=== PATIENT | female | born 1935 | race Caucasian/White ===

== ENCOUNTER 2019-07-09 00:51 | Inpatient (IN) | payer MEDICARE ==
[~2019-07-09] VITALS: Ht 154.9 cm; Wt 49.9 kg
[2019-07-09] MEDS ORDERED: AMITRIPTYLINE100 M1 PO (01:44)
[2019-07-09] MEDS ORDERED: RANEXA500 M1 PO (01:47)
[2019-07-09] MEDS ORDERED: VITAMIN E400 UNI3 PO (01:47)
[2019-07-09] MEDS ORDERED: LASIX40 MG PO (01:48)
[2019-07-09] MEDS ORDERED: VITAMIN C100 M3 PO (01:49)
[2019-07-09] MEDS ORDERED: LOPRESSOR25 MG PO (01:50)
[2019-07-09] MEDS ORDERED: ASPIRIN LITE C325 MG PO (01:50)
[2019-07-09] MEDS ORDERED: CENTRUM SILVER1 EAC1 PO (01:51)
[2019-07-09] MEDS ORDERED: OMEGA-31000 M1 PO (01:52)
[2019-07-09] MEDS ORDERED: CRESTOR40 M1 PO (01:52)
[2019-07-09 05:46] VITALS: BP 150/76
--- NOTE | 2019-07-09 05:54 | NUR ---
DR CHISHOLM ON FLOOR TO SEE CLIENT
--- NOTE | 2019-07-09 06:47 | NUR ---
REBA RESENDEZ NOTIFIED OF ADMISION AND STATUS
[2019-07-09 07:03] VITALS: BP 150/76
--- NOTE | 2019-07-09 07:18 | NUR ---
JANICE THOMPSNO a 83 year old F admitted via wheel chair FROM [facility] as a emergency 72 hr. hold admission. Arrived on unit at 0535. ALLERGIES: . Vital signs are: 98.1-96-20 150/76. The client signed the following forms with stated understanding: Authorization For The Release of Medical Information, Clothing List, Consent to Voluntary Admission and Hospitalization, Consent and Release Forms/Receipt of Rights, Acknowledgement of Advance Directive Information, Behavioral Health Consent Form, and Informed Consent of Medications. Admitted under the services of Dr. VINCENZO SILVA,[facility]. A search was conducted and hazardous articles were removed. Client was oriented to the unit. LEA HOWARD
[2019-07-09 07:35] LABS: BASO # 0.1 10*3/uL (0.0-0.1); BASO % 1.1 % (0.0-1.0); EOS # 0.3 10*3/uL (0.0-0.4); EOS % 2.9 % (1.0-4.0); HEMATOCRIT 40.2 % (37.0-47.0); LYMPH # 2.6 10*3/uL (1.3-4.4); LYMPH % 28.3 % (27.0-41.0); MEAN CELL VOLUME 96.6 fl (81.0-99.0); MEAN CORPUSCULAR HGB 31.3 pg (27.0-31.0); MEAN CORPUSCULAR HGB CONC 32.3 g/dl (33.0-37.0); MEAN PLATELET VOLUME 9.6 fl (9.6-12.3); MONO # 0.9 10*3/uL (0.1-1.0); MONO % 9.7 % (3.0-9.0); NEUT # 5.2 10*3/uL (2.3-7.9); NEUT % 57.7 % (47.0-73.0); PLATELET COUNT AUTOMATED 321 10*3/uL (130-400); RED BLOOD COUNT 4.16 10*6/uL (4.10-5.10); RED CELL DISTRI WIDTH 14.1 % (0-14.5); WHITE BLOOD COUNT 9.1 10*3/uL (4.8-10.8)
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
[2019-07-09 08:00] VITALS: BP 129/70
[2019-07-09 08:05] LABS: ALBUMIN 3.7 gm/dl (3.1-4.5); ALKALINE PHOSPHATASE 87 U/L (45-117); BUN 12 mg/dl (7-24); CHLORIDE 106 mmol/L (98-107); CHOLESTEROL 205 mg/dL (<200); CREATININE 0.76 mg/dL (0.55-1.02); HDL CHOLESTEROL 60 mg/dl (40-60); LDL CHOLESTEROL 127 mg/dL (9-159); POTASSIUM 3.6 mmol/L (3.5-5.1); SGOT/AST 16 IU/L (3-35); SGPT/ALT 19 U/L (12-78); SODIUM 138 mmol/L (136-145); TOTAL PROTEIN 7.4 gm/dL (6.4-8.2); TRIGLYCERIDES 92 mg/dl (<150); VLDL CHOLESTEROL 18 mg/dL (6-40)
--- NOTE | 2019-07-09 08:33 | NUR ---
PT AWAKE, ALERT AND VERBAL, PLEASANT. RESPS EASY AND EVEN ON ROOM AIR. HARDEEP PMP- ON UNIT TO SEE PT AT THIS TIME.
[2019-07-09 08:50] LABS: VITAMIN D, 25-HYDROXY 18.3 ng/mL (30-100)
--- NOTE | 2019-07-09 10:07 | NUR ---
STEPHANIE PROCESS ENGINEERING TECHNICIAN ON UNIT TO SEE PT AT THIS TIME.
--- NOTE | 2019-07-09 12:20 | NUR ---
DISCUSSED PT'S HOME MEDICATION AMITRIPTYLINE WITH HARDEEP PMP-. HARDEEP GAVE VERBAL ORDER TO D/C NEW ORDER REMERON AND CONTINUE PT'S HOME MEDICATION AMITRIPTYLINE.
--- NOTE | 2019-07-09 12:49 | NUR ---
PSYCHOSOCIAL HX COMPLETED THIS DATE.
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
[2019-07-09 20:00] VITALS: BP 132/67
--- NOTE | 2019-07-09 20:44 | NUR ---
24 HR chart check completed.
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
--- NOTE | 2019-07-10 05:57 | NUR ---
PT SLEPT PAST 2215 WITH INTERMITTENT AWAKENINGS FOR A TOTAL OF 5 HOURS.
[2019-07-10 07:41] VITALS: BP 153/77
--- NOTE | 2019-07-10 08:45 | NUR ---
abbi galicia np, made aware of home medical meds needing reviewed
--- NOTE | 2019-07-10 11:55 | NUR ---
NO AM GROUP THERAPY DUE TO NEW PT ASSESSMENTS
--- NOTE | 2019-07-10 15:43 | NUR ---
PM GROUP PT ATTENDED AFTERNOON GROUP THERAPY AND PARTICIPATED BY READING THE NEWSPAPER. PT FELL ASLEEP OFF AND ON. PT EXPRESSED NO PARANOID DELUSIONS WHILE IN GROUP.
[2019-07-10 19:53] VITALS: BP 137/58
--- NOTE | 2019-07-10 20:52 | NUR ---
EVENING/LEISURE SKILLS PT ATTENDED AND PARTICIPATED TO THE BEST OF ABILITY BY SOCVILAIZING WITH THIS STAFF AND PEERS. PT EXPRESSED NO PARANOID DELUSIONS OR WENT AWOL. PT WILL CONTINUE TO ATTEND ANDPARTICIPATE IN FUTURE GROUP SESSIOSN TO BEST OF PT ABILITY.
--- NOTE | 2019-07-11 02:10 | NUR ---
DURING ROUNDING STAFF CHECKED IN PT ROOM TO SEE HER SQUATTING NEXT TO BED VOIDING INAPPROPRIATELY, PT ASSIST WITH HOC AND REDIRECTED BACK TO BED. COMPLIANT WITH ASSISTANCE
--- NOTE | 2019-07-11 03:53 | NUR ---
P: HALLUCINATIONS, DELUSIONS, PARANOIA, INTERMITTENT CONFUSION I: MONITOR FOR HALLUCINATIONS/DELUSIONS, MEDICATION ADMINISTRATIONS, REORIENTATION NEEDED, R: PT RESPONSIVE TO COMMUNICATIONS, DENIES HALLUCINATIONSS OR DELUSIONS AT THIS TIME. MEDICAITON COMPLIANT, COMPLAINT OF SHOULDER AND BACK PAIN WITH TYLENOL GIVEN AT MED PASS 2100 PER PT REQUEST, EFFECTIVE. GAIT STEADY WITH WHEELED WALKER. P: CONTINUE TO MONITOR FOR BEHAVIORS AND MEDICATION EFFECTIVENESS NO SI/HI NOTED
[2019-07-11 05:11] LABS: BILIRUBIN NEGATIVE (NEGATIVE); BLOOD NEGATIVE (NEGATIVE); CLARITY CLEAR (CLEAR); COLOR YELLOW (YELLOW); GLUCOSE NEGATIVE (NEGATIVE); KETONE NEGATIVE (NEGATIVE); LEUKO ESTERASE 2+ (NEGATIVE); NITRITE NEGATIVE (NEGATIVE); SPECIFIC GRAVITY 1.015 (1.005-1.030); UROBILINOGEN 0.2 E.U./dl (0.2-1.0)
[2019-07-11 05:16] LABS: BACTERIA 1+; WBC 16-20 wbc/hpf (0-5)
--- NOTE | 2019-07-11 08:00 | NUR ---
Treatment Plan meeting was held with Dr. Malloy, CHET Mar, RN, AT, LIVESTOCK SALES REPRESENTATIVE-S and Heel Builder Machine in attendance. Plan for discharge when stable. Pt. came to [facility] from Home and will return home at discharge.
[2019-07-11 08:22] VITALS: BP 132/53
--- NOTE | 2019-07-11 10:20 | NUR ---
LIZZ FREEDMAN ON UNIT TO ASSESS PT, UPDATE PROVIDED.
--- NOTE | 2019-07-11 11:49 | NUR ---
AM GROUP PT ATTENDED MORNING GROUP THERAPY BUT KEPT FALLING ASLEEP SEATED IN A CHAIR AT THE TABLE AND WAS MOVED TO A COMFY CHAIR. PT SLEPT FOR MOST OF GROUP.
--- NOTE | 2019-07-11 15:55 | NUR ---
PM GROUP PT WAS PRESENT FOR AFTERNOON GROUP THERAPY BUT SLEPT THE ENTIRE TIME IN A COMFY CHAIR.
--- NOTE | 2019-07-11 17:40 | NUR ---
P: PT IRRITABLE WITH STAFF AT TIMES THROUGHOUT THE DAY. PT ISOLATIVE TO SELF THROUGHOUT THE DAY, REFUSING TO PARTICIPATE IN GROUP/ACTIVITES THROUGHOUT THE DAY, LITTLE TO NO INTERACTION NOTED WITH STAFF AND PEERS. I: ENCOURAGE GROUP PARTICIPATION AND SOCIALIZATON, PROVIDE EMOTIONAL SUPPORT AND 1:1 FOR PT VOICE FEELINGS, ENCOURAGE MED COMPLIANCE AND PROVIDE MED EDUCATION R: PT ALERT TO PERSON AND TIME, RE-ORIENTED TO PLACE AND SITUATION, CONFUSION AND SHORT TERM MEMORY DEFICITS NOTED PER PT BASELINE. PT REMAINS IRRITABLE AT TIMES WITH STAFF. PT CONTINUES TO REFUSED TO PARTICIPATE IN GROUP/ACTIVITES. NO HALLUCINATIONS OR DELUSIONS NOTED AT THIS TIME. PT DENIES ANY SUICIDAL THOUGHTS. PT AMBUALTORY THROUGHOUT UNIT, GAIT OCCASIONALLY UNSTEADY. PT CONTINENT OF BOWEL AND BLADDER, EPISODES OF INCONTINENCE NOTED, CARE PROVIDED NEEDED. P: MONITOR PT BEHAVIORS ON Q15 MIN SAFETY CHECKS, ENCOURAGE MED COMPLIANCE, UNABLE TO PROVIDE MED EDUCATION D/T COGNITION, ENCOURAGE GROUP PARTICIPATION AND SOCIALIZATION, PROVIDE EDMOTIONAL SUPPORT AND 1:1 FOR PT TO VOICE FEELINGS.
--- NOTE | 2019-07-11 19:54 | NUR ---
24 HR chart check completed.
[2019-07-11 20:00] VITALS: BP 126/56
--- NOTE | 2019-07-11 20:39 | NUR ---
EVENING/LEISURE SKILLS PT IN ATTENDANCE RESTING IN CHAIR, BUT SOON WAKES AND USES RESTROOM. PT RETURNS TO DAYROOM TO EAT SNACK AND OBSERVE MOVIE. PT EXPRESSES NO PARANOID DELSUIONS AT THIS TIME. PT WILL CONTINUE TO ATTEND ANDPARTICIPATE IN FUTRUE GROUP SESSIONS TO BEST OF PT ABILITY.
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
--- NOTE | 2019-07-12 05:35 | NUR ---
PT HAS SLEPT PAST 2144
[2019-07-12 08:00] VITALS: BP 133/71
--- NOTE | 2019-07-12 08:00 | NUR ---
Treatment Plan meeting was held this a.m. with Dr. Malloy, CHET Mar, RN, AT, EVENT SPECIALIST PRODUCT DEMONSTRATOR-S and Type Caster in attendance. Plan for discharge next week. Pt. will return home at this point.
--- NOTE | 2019-07-12 08:25 | NUR ---
SPOKE TO LAB RE: AMITRIPTYLINE LEVEL ORDERED BY HARDEEP ANGIE-/. APPROVED BY .
--- NOTE | 2019-07-12 10:51 | NUR ---
Left a voicemail message for pt's son Javy Anand requesting a return call.
--- NOTE | 2019-07-12 10:53 | NUR ---
Late Entry. Met with patient yesterday afternoon. Pt was sleepy but did engage in conversation. Pt was experiencing visual hallucinations seeing her cat Jf. Pt was pleasant and easy to redirect for a short time before pt would start calling for Jf. Pt did also share about childhood experiences [place] her [place].
--- NOTE | 2019-07-12 11:51 | NUR ---
AM GROUP/EXERCISE AND BRAIN GAMES PT WAS PRESENT FOR MORNING GROUP THERAPY SEATED AT A TABLE FAST ASLEEP. PT WOKE A FEW TIMES DURING GROUP BUT WENT RIGHT BACK TO SLEEP
--- NOTE | 2019-07-12 12:54 | NUR ---
PHYSICAL THERAPY Screen and PT eval received will follow thank you Grace Hernandez PT
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
--- NOTE | 2019-07-12 15:46 | NUR ---
PM GROUP/WATERCOLORS AND MUSIC PT ATTENDED AFTERNOON GROUP THERAPY AND ATTEMPTED TO PAINT BUT SOON FELL ASLEEP AT THE TABLE WITH PAINTBRUSH IN HAND. PT IS VERY CONFUSED BUT PLEASANT. PT EXPRESSED NO PARANOIA OR VISUAL HALLUCINATIONS WHILE IN GROUP.
--- NOTE | 2019-07-12 17:05 | NUR ---
PT REFUSED MILK OF MAG STATING "I GO EVERYDAY". THIS HAS NOT BEEN WITNESSED BY STAFF.
--- NOTE | 2019-07-12 17:08 | NUR ---
P: PT CHEEKING MEDS, FOUND TO BE SITTING ON HER PILLS AFTER MED PASS, WHEN STAFF APPROACHED PT SHE STATED "I DONT TAKE THOSE IN THE MORNING, JUST AT NIGHT" I: PROVIDE MED EDUCATION AND ENCOURAGE MED COMPLIANCE, PROVIDE EMOTIONAL SUPPORT AND 1:1 FOR PT TO VOICE FEELINGS, COMPLETE MOUTH CHECKS AFTER ADMINISTERING MEDICATIONS R: PT ALERT TO PERSON, PLACE, TIME AND SITUATION, CONFUSION AND SHORT TERM MEMORY DEFICITS NOTED PER PT BASELINE. PT PLEASANT WITH STAFF AND PEERS. NO HALLUCINATIONS OR DELUSIONS NOTED AT THIS TIME. PT DENIES ANY SUICIDAL THOUGHTS AT THIS TIME. PT AMBULATORY THROUGHOUT UNIT WITH WHEELED WALKER, GAIT STEADY. PT CONTINENT OF BOWEL AND BLADDER. P: MONITOR PT BEHAVIORS ON Q15 MIN SAFETY CHECKS, CONTINUE WITH MOUTH CHECKS AFTER ADMINISTERING MEDICATIONS, PROVIDE EMOTIONAL SUPPORT AND 1:1 FOR PT TO VOICE FEELINGS, ENCOURAGE GROUP PARTICIPATION AND SOCIALIZATION.
[2019-07-12 19:46] VITALS: BP 116/61
--- NOTE | 2019-07-13 05:37 | NUR ---
SLEPT PAST 2144
[2019-07-13 07:38] VITALS: BP 135/64
--- NOTE | 2019-07-13 08:00 | NUR ---
Treatment Plan meeting was held with Dr. Malloy RN, AT and Industrial Maintenance Millwright in attendance. Plan for discharge Next week. Pt. will return home at discharge.
--- NOTE | 2019-07-13 11:15 | NUR ---
Nursing screen and Occupational Therapy referral received. Thank you. Karla Amezcua OTR/l
--- NOTE | 2019-07-13 11:52 | NUR ---
AM GROUP PT DID NOT ATTEND MORNING GROUP THERAPY. PT WAS IN BED NAPPING
--- NOTE | 2019-07-13 13:03 | NUR ---
ALERT TO PERSON AND TIME. PT ABLE TO STATE PRESIDENT. PT BELIEVES SHE IS AT [facility] AND [facility]. CONFUSION NOTED. DENIES SI/HI, HALLUCINATIONS AND DELUSIONS. PT STATE SHE FEELS BETTER. NO COMPLAINTS AT THIS TIME. MEDICATION COMPLIANT WITHOUT DIFFICULTY. BEHAVIORS MONITORED WITH Q15 MINUTE SAFETY CHECKS. SEE [facility] FLOWSHEET FOR SPECIFIC MONITORING.
--- NOTE | 2019-07-13 15:34 | NUR ---
Family meeting held via the phone with pt's son Ruslan Mccann. Ruslan stated that he did not know where his mother was. The last he was told, the trust operations assistant was bringing pt back to her house. On 07/08 pt took a taxi to the trust operations assistant's department due to paranoid delusions. Ruslan stated that pt has a lengthy hx of calling the trust operations assistant due to her paranoid delusions. Ruslan does live directly beside pt. He believes that pt is safe to return home. He reports that he helps her as much as she allows and that pt is self-sufficient by calling a taxi to take her shopping and to dr appointments. Ruslan stated that he doesn't go to pt's house daily but he constantly watches over pt's house. Ruslan continued that pt is able to care for her home, cook, and care for her cats. Ruslan stated that pt has been voicing paranoid delusions for several years - before the of her 4 years ago. When her was alive, pt believed that he was having an affair and had a hidden cell phone that he used to call his girlfriend. Ruslan stated that there is no truth to that. Ruslan also shared that years ago, he took the pt to her PCP because he was concerned about pt's paranoia, but the PCP did not do anything about it. Best number to reach Ruslan is [phone].
--- NOTE | 2019-07-13 15:42 | NUR ---
PM GROUP PT ATTENDED AFTERNOON GROUP THERAPY AND PARTICIPATED BY SOCIALIZING WITH A FEMALE PEER. PT EXPRESSED NO PARANOID IDEATIONS OR HALLUCINATIONS WHILE IN GROUP
[2019-07-13 19:59] VITALS: BP 130/62
--- NOTE | 2019-07-13 21:47 | NUR ---
Patient alert to person and time with confusion noted. Memory deficits noted. Mood calm and pleasant at this time. No overt s/s of any responding to internal stimuli. Patient compliant with HS medications without any difficulty. Provided 1:1 for emotional support. Patient said "I feel pretty good today". Redirected/reoriented when needed. Plan to continue to encourage medication compliance. Also continue to provide emotional support and redirect/reorient when needed/appropriate. Will continue to monitor moods/behaviors. Q 15 minute safety checks continued and maintained. See [facility] flowsheet for further documentation.
--- NOTE | 2019-07-14 00:12 | NUR ---
24 HR chart check completed.
--- NOTE | 2019-07-14 05:24 | NUR ---
Patient slept approx. 7 hours throughout shift. Q 15 minute safety checks continued and maintained.
[2019-07-14 08:00] VITALS: BP 132/62
--- NOTE | 2019-07-14 08:30 | NUR ---
Occupational Therapy evaluation completed on 3 with full eval to follow. Patient was transferred by w/c to dining room d/t left hip and LLE pain. Patient continues to be delusional regarding home situation. Social Service reports that patient will not allow her son to come into the house d/t her paranoia. Precautions include fall risk w/ standing d/t impaired balance with and without new ww, moderate complexity level 40537. Recommend OT per POC to work with ww in ADLs and safety in mobility and SNF v.s. home with 24hr supervision and assist. Thank you. Karla Amezcua OTR/L
--- NOTE | 2019-07-14 09:09 | NUR ---
PHYSICAL THERAPY Norma completed full report to follow moderate level of complexity 27890 recomend if home then 24 hr care/supervision due to cogntived/saftey issues and fall risk or placment such as assisted living. PT to work on balance safety amb with LRD strengthening. Grace Hernandez PT
--- NOTE | 2019-07-14 09:30 | NUR ---
PT C/O LEFT HIP PAIN. PER PT THIS IS AN AREA WHERE SHE HAD SHINGLES AND IT CONTINUES TO GIVE HER PROBLEMS. AREA CHECKED AND SCARING NOTED TO AREA. PRN TYLENOL GIVEN AT THIS TIME. PT STATED PAIN LEVEL WAS AN 8 ON A PAIN SCALE OF 0-10. WILL MONITOR EFFECTIVENESS OF MEDICATION.
--- NOTE | 2019-07-14 09:59 | NUR ---
Spoke with pt's granddaughter Talia Rodriguez by phone. Talia stated that she has been frantic searching for the pt, as the family was not informed where she was. Talia shared that the pt will allow Talia to assist her to a degree. Pt will allow Talia to drive her places and help pt in her home. Talia did confirm that pt is self-sufficient and fiercely independent. Talia stated that pt has always been very independent and reluctant to have any help from the family. Talia stated that the family had explored guardianship for pt but that the doctor did not complete a Statement of Expert Evaluation. Discussed the guardianship process further. Talia stated that she and pt's son Ruslan have discussed this and realize that pt generally can answer orientation questions correctly and that she is able to maintain her home, so most likely would be found competent. Informed Talia that this newswriter would speak to Dr Malloy about this.
--- NOTE | 2019-07-14 10:30 | NUR ---
PRN TYLENOL EFFECTIVE. PT UP WALKING IN THE DINNINGROOM AT THIS TIME. WILL CONTINUE TO MONITOR THE EFFECTIVENESS OF MEDICATION. LIZZ FREEDMAN UPDATED AND NEW ORDER FOR XRAY OF LEFT HIP.
--- NOTE | 2019-07-14 11:48 | NUR ---
AM GROUP/BEADING PT ATTENDED GROUP THERAPY BUT DID NOT WANT TO TRY BEADING STATING, "I"LL JUST WATCH" PT WAS GIVEN A BASKET OF BEADS AND A TRAY AND WAS ASKED TO SORT THEM FOR ME. PT SPENT THE ENTIRE GROUP GOING THROUGH THE BEADS. PT EXPRESSED NO PARANOIA OR HALLUCINATIONS WHILE IN GROUP
--- NOTE | 2019-07-14 14:51 | NUR ---
ALERT AND ORIENTED TO PERSON, AND TIME. CONFUSION NOTED.STABLE MOOD. CALM AND INTERACTIVE WITH PEERS AND STAFF. NO HALLUCINATIONS OR DELUSIONS NOTED. NO SI/HI. MEDICATION COMPLIANT WITHOUT COMPLICATIONS. UNABLE TO PROVIDE EDUCATION DUE TO CONFUSION. BEHAVIORS MONITORED WITH Q15 MINUTE SAFETY CHECKS. SEE [facility] FLOWSHEET FOR SPECIFIC MONITORING.
--- NOTE | 2019-07-14 15:39 | NUR ---
PT OFF THE UNIT TO RADIOLOGY FOR XRAY OF HIP
--- NOTE | 2019-07-14 15:50 | NUR ---
PM GROUP/MOVIE PT ATTENDED AFTERNOON GROUP THERAPY AND WATCHED MOST OF THE MOVIE AND HAD A SNACK. PT DOZED OFF A FEW TIMES. PT EXPRESSED NO DELUSIONS OR HALLUCINATIONS WHILE IN GROUP
--- NOTE | 2019-07-14 15:52 | NUR ---
PT RETURNED TO FLOOR FROM RADIOLOGY
[2019-07-14 19:11] VITALS: BP 114/68
--- NOTE | 2019-07-15 01:29 | NUR ---
PT PLEASANT MEDICATION COMPLIANT, WITH NO DELUSIONS OR HALLUCINATIONS NOTED THIS SHIFT. AMBULATED WITH STEADY GAIT WITH WHEELED WALKER TO AND FROM LOUNGE AND BEDROOM. PT COOPERATIVE WITH ALL ASPECTS OF CARE. NO COMPLAINTS OF PAIN TO LEFT HIP. NO SI/HI CONTINUE TO MONITOR FOR BEHAVIORS, MEDICATION EDUCATION AND 15 MIN CHECKS. PT ENJOYS TALKING WITH OTHER PEERS.
--- NOTE | 2019-07-15 06:49 | NUR ---
SLEPT 9+
[2019-07-15 07:26] VITALS: BP 126/52
--- NOTE | 2019-07-15 11:35 | NUR ---
LIZZ FREEDMAN BRIGHT CUTTER ON UNIT TO ASSESS PT. UPDATE PROVIDED.
--- NOTE | 2019-07-15 12:04 | NUR ---
AM GROUP/MUSIC/EXERCISE/LEISURE PT IN ATTENDANCE AND PARTICIPATED THROUGH SOCIALIZATION OF FEMALE PEERS. PT PLEASANTLY CONFUSED. PT EXPRESSES NO PARANOIA OR VISUAL HALLUCINATIONS AT THIS TIME. PT WILL CONTINUE TO ATTEND AN DPARTICIPATE TO BEST OF PT ABILITY.
--- NOTE | 2019-07-15 16:02 | NUR ---
PM GROUP/MOVIE/LEISURE SKILLS PT IN DID NOT ATTEND AT THIS TIME DUE TO RESTING.
[2019-07-15 16:11] LABS: TOTAL (AMI + NOR) 141 ng/mL (80-200)
--- NOTE | 2019-07-15 16:16 | NUR ---
ALERT AND ORIENTED TO PERSON, AND TIME. CONFUSION NOTED.STABLE MOOD. CALM AND INTERACTIVE WITH PEERS AND STAFF. NO HALLUCINATIONS OR DELUSIONS NOTED. NO SI/HI. MEDICATION COMPLIANT WITHOUT COMPLICATIONS. UNABLE TO PROVIDE EDUCATION DUE TO CONFUSION. BEHAVIORS MONITORED WITH Q15 MINUTE SAFETY CHECKS. SEE [facility] FLOWSHEET FOR SPECIFIC MONITORING.
[2019-07-15 20:27] VITALS: BP 124/76
--- NOTE | 2019-07-15 20:33 | NUR ---
24 HOUR CHART CHECK COMPLETED.
--- NOTE | 2019-07-16 00:14 | NUR ---
NO ADVERSE BEHAVIORS NOTED. PT ALERT AND ORIENTED X4. PT CALM, COOPERATIVE, AND INTERACTIVE. DURING 1:1 PATIENT PLEASANT UPON APPROACH STATING SHE FEELS BETTER AND FEELING LIKE "ERUM BEEN FREED FROM HALFWAY". PT ALSO PREOCCUPIED WITH HER CATS AND BEING WORRIED ABOUT THEIR CARE, EMOTIONAL SUPPORT PROVIDED. PT DENIES SI/HI, HALLUCINATIONS, AND PAIN. NO PARANOIA/DELUSIONS NOTED. PT AMBULATORY WITH STEADY GAIT, ABLE TO MAKE NEEDS KNOWN, CONTINENT OF BOWEL AND BLADDER. PT CURRENTLY LAYING DOWN WITH EYES CLOSED, RESPIRATIONS EASY AND REGULAR, NO SIGNS OR SYMPTOMS OF DISTRESS NOTED. PLAN IS TO CONTINUE MONITOR MOODS AND BEHAVIORS. PROVIDE 1:1 WITH THERAPEUTIC INTERVENTIONS. ENCOURAGE MEDICATION COMPLIANCE AND EDUCATE. MAINTAIN Q 15 MIN CHECKS.
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
--- NOTE | 2019-07-16 04:11 | NUR ---
PT CONTINUES TO RESPOND TO INTERNAL STIMULI, GETTING IN AND OUT OF BED AND GRABBING UNSEEN OBJECTS. UNABLE TO REDIRECT. PT SHOWERED WITH ASSISTANCE TO HELP CALM AND BROUGHT NURSES STATION DUE TO LACK OF SAFETY AWARENESS. PT SITTING QUIETLY IN A MIMI CHAIR, NO DISTRESS NOTED.
--- NOTE | 2019-07-16 05:49 | NUR ---
PATIENT OBSERVED ON Q 15 MIN CHECKS TO HAVE SLEPT APPROX 1 HOUR THIS SHIFT DUE TO MULTIPLE AWAKENINGS. NO SIGNS OR SYMPTOMS OF DISTRESS NOTED.
--- NOTE | 2019-07-16 08:00 | NUR ---
PT REFUSED BREAKFAST AT THIS TIME PT WOULD LIKE TO STAY IN BED AT THIS TIME D/T POOR SLEEP LAST NIGHT. PT RESTING IN BED QUIETLY WITH EYES CLOSED, RESPS EASY AND EVEN ON ROOM AIR. NO DISTRESS NOTED.
[2019-07-16 08:03] VITALS: BP 129/73
--- NOTE | 2019-07-16 09:37 | NUR ---
STEPHANIE COSTUME DIRECTOR ON UNIT TO SEE PT AT THIS TIME. UPDATE GIVEN.
--- NOTE | 2019-07-16 11:59 | NUR ---
P- PT CONTINUES TO VOICE DELUSIONAL THOUGHTS ABOUT THE WOMAN WHO BREAKS INTO HER HOUSE AND TORMENTS HER, PT STATES "MY GRANDDAUGTHER TOLD ME THEY CHANGED ALL THE LOCKS ON MY HOUSE SO SHE CAN'T GET IN". I- ORIENTATION, MOOD AND BEHAVIOR ASSESSED. ASSESSED PT FOR SI/HI, INTENT OR PLAN. ASSESSED PT FOR S/S HALLUCINATIONS, PARANOIA AND/OR DELUSIONS. MEDICATIONS ADMINISTERED PER PHYSICIAN'S ORDERS. ASSISTANCE WITH ADL CARE PROVIDED NEEDED. ENCORUAGED PT TO ATTEND AND PARTICIPATE IN [facility] GROUPS AND ACTIVITIES. R- PT IS ALERT AND ORIENTED X 4. MILD ST MEMORY GAPS NOTED AT TIMES. RESPS EASY AND EVEN ON ROOM AIR. MOOD STABLE WITH APPROPRIATE AFFECT. SPEECH IS WNL AND COHERENT, ABLE TO MAKE NEEDS KNOWN WITHOUT DIFFICULTY. PT DENIES SI/HI, INTENT OR PLAN. PT DENIES HALLUCINATIONS, NO RESPONSE TO INTERNAL STIMULI NOTED. PT CONTINUES TO VOICE PARANOIA REGARDING THE WOMAN WHO BREAKS INTO HER HOME AT NIGHT, PT STATES "MY GRANDDAUGHTER CAME DOWN YESTERDAY AND TOLD ME THEY CHANGED ALL THE LOCKS ON THE DOORS AT MY HOUSE SO SHE CAN'T GET IN". PT IS MED COMPLIANT WITHOUT DIFFICULTY. CALM AND COOPERATIVE. INTERACTS WELL WITH STAFF AND PEERS. NO DISTRESS NOTED. P- PLAN TO CONTINUE CURRENT TREATMENT, CONTINUE TO MONITOR MOOD AND BEHAVIORS, PROVIDE APPROPRIATE REORIENTATION, REDIRECTION AND 1:1 NEEDED. CONTINUE TO ENCOURAGE MEDICATION COMPLIANCE WELL GROUP ATTENDANCE AND PARTICIPATION.
--- NOTE | 2019-07-16 13:02 | NUR ---
AM GROUP/EXERCISE/MUSIC/COLOR BY NUMBER PT ATTENDED AND PARTICIPATE IN ALL GROUP ACTIVITY. PT PLEASANT AND ON TASK WORKING ON COLOR BY NUMBER. PT SINGING AND DANCING ALONG TO MUSIC. PT EXPRESSED NO PARANOIA, OR HALLUCINATIONS AT THIS TIME. PT WILL CONTINUE TO ATTEND AND PARTICIPATE IN FUTURE GROUP SESSIONS TO BEST OF PT ABILITY.
--- NOTE | 2019-07-16 14:45 | NUR ---
PT MORE CONFUSED AT THIS TIME, TALKING ABOUT HORNETS AND LOOKING FOR A SACK O POTATOES. REORIENTATION PROVIDED. PT STATES "OH YEAH, THAT WAS SUMMERTIME". PT THEN REQUESTED TO LAY DOWN. PT RESTING QUIETLY IN BED AT THIS TIME WITH EYES CLOSED. RESPS EASY AND EVEN ON ROOM AIR.
--- NOTE | 2019-07-16 17:29 | NUR ---
SHIFT CHART CHECK COMPLETED.
[2019-07-16 20:33] VITALS: BP 118/59
--- NOTE | 2019-07-16 23:57 | NUR ---
P-CONFUSED. I-PROVIDE REORIENTATION. PROVIDE 1:1 WITH THERAPEUTIC INTERVENTIONS. ENCOURAGE MEDICATION COMPLIANCE AND EDUCATE. MONITOR SLEEP. R-PATIENT ALERT PERSON, APPROX TO PLACE WITH INTERMITTENT CONFUSION. PT PLEASANT, CALM, AND INTERACTIVE THIS SHIFT. PT MEDICATION COMPLIANT WITHOUT DIFFICULTY AFTER REVIEW. PT DENIES SI/HI, HALLUCINATIONS OR PAIN. NO NOTED RESPONDING TO INTERNAL STIMULI. NO PARANOIA/DELUSIONS NOTED. PT AMBULATORY WITH A STEADY GAIT, STAND BY ASSIST. PT LAYING DOWN WITH EYES CLOSED, RESPIRATIONS EASY AND REGULAR. NO SIGNS OR SYMPTOMS OF DISTRESS NOTED. P-CONTINUE TO MONITOR MOOD AND BEHAVIORS. PRESENT REALITY AND REORIENT NEEDED. PROVIDE 1:1 WITH THERAPEUTIC INTERVENTIONS. ENCOURAGE MEDICATION COMPLIANCE AND EDUCATE. MAINTAIN Q 15 MIN CHECKS.
--- NOTE | 2019-07-17 06:05 | NUR ---
PATIENT OBSERVED ON Q 15 MIN CHECKS TO HAVE SLEPT APPROX 7 HOURS WITH NO AWAKENINGS OR SIGNS AND SYMPTOMS OF DISTRESS NOTED.
--- NOTE | 2019-07-17 07:10 | NUR ---
PHYSICAL THERAPY Patient seen this am for therapy visit and was just awakening supine in bed upon therapist arrival. Patient identified by name / and was very pleasant this morning. OT logistics assistant was also present for observation only as patient transfers supine to sit EOB with MIN A x 1. Patient needed a minute or so to collect herself prior to completing sit to stand MIN A, then ambulated 15'x 1 to [facility], use of walker, while demonstrating very slow, cautious gait pattern. Patient ambulated addtional 50'x 1, wh walker, CGA, demonstrating slow alfredo, mild R side gait deviation, and needed v/c to improve bouts of "slouched" upright posture. Patient completed all treatment without further c/o and returned to chair at table in activity room awaiting breakfast, under [facility] staff Supervision. Will continue per POC as tolerated, total treatment time 14 minutes. Jose Jackson, LEAD PORTFOLIO MANAGER
--- NOTE | 2019-07-17 07:25 | NUR ---
OT NOTE Pt was seen this A.M. 1:1 for 25 minute OT session with PRINT DESIGNER and nursing staff present for observation only. Upon arrival pt was supine in bed. Pt identified by name and and had no complaints at this time. Pt transferred supine to sit EOB with modA for assist with both upper body and lower extremities. While sitting EOB pt donned B socks with CGA while bringing a leg up to the bed level, throughout pt presented with F- sitting balance requiring Ewa to correct retrograde LOB. Sit to stand completed from bed level with Ewa and use of w/w for UE support. Functional mobility was then completed into the bathroom with CGA and use of w/w. There she transferred on to standard commode with CGA for safety. Clothing management completed with CGA and toilet hygiene completed with supervision while seated. She then transferred off standard commode with Ewa due to low surface. Pt then stood sink side while washing her hands and face with CGA for safety. Pt had one minor LOB to the L while crossing midline for the soap that required Ewa to correct. Functional mobility was then completed to the dining croft with CGA and use of w/w where she was left sitting upright under [facility] staff supervision. Continue with rec D/C plan to SNF. CONNOR Dominguez
[2019-07-17 08:00] VITALS: BP 130/61
--- NOTE | 2019-07-17 08:00 | NUR ---
Patient resting quietly with no c/o discomfort. Respirations easy and regular. Vital signs stable. No overt distress. KEN STRONG
--- NOTE | 2019-07-17 08:00 | NUR ---
Treatment Plan meeting was held with Dr. Malloy, CHET Mar RN, PERSONAL LOAN SPECIALIST-S and Decal Maker. Plan for discharge Wednesday. Pt. will return home at discharge.
--- NOTE | 2019-07-17 08:30 | NUR ---
AND HARDEEP PMHNP-BC ON UNIT TO SEE PT AT THIS TIME, UPDATE GIVEN.
--- NOTE | 2019-07-17 12:41 | NUR ---
MADE AWARE OF CONSULT PER .
--- NOTE | 2019-07-17 13:37 | NUR ---
Pt was pleasant this AM during interaction. Pt spoke of her cats appropriately. This insurance underwriter did not observe pt having visual hallucinations nor voicing delusions. Pt also spoke of a horse that she had on her family [place] when she was young. Observed pt voicing kind words to another patient.
--- NOTE | 2019-07-17 14:00 | NUR ---
Kamille PRESSROOM SUPERVISOR on unit to see pt at this time. update given.
--- NOTE | 2019-07-17 17:51 | NUR ---
NO ADVERSE MOODS OR BEHAVIORS THIS SHIFT. PT IS ALERT AND ORIENTED TO PERSON, PLACE, APPROXIMATE TIME AND SITUATION. MILD CONFUSION/ MEMORY GAPS NOTED AT TIMES. RESPS EASY AND EVEN ON ROOM AIR. MOOD IS STABLE, AFFECT APPROPRIATE. SPEECH IS WNL AND COHERENT, ABLE TO MAKE NEEDS KNOWN WITHOUT DIFFICULTY. PT DENIES SI/HI, INTENT OR PLAN. PT DENIES HALLUCINATIONS, NO RESPONSE TO INTERNAL STIMULI NOTED. NO PARANOIA OR DELUSIONS NOTED. PT IS MEDICATION COMPLIANT WITHOUT DIFFICULTY. INTERACTS WELL WITH STAFF AND PEERS. NO DISTRESS NOTED. PLAN TO CONTINUE CURRENT TREATMENT, CONTINUE TO MONITOR MOOD AND BEHAVIORS, PROVIDE APPROPRIATE REORIENTATION, REDIRECTION AND 1:1 NEEDED. CONTINUE TO ENCOURAGE MEDICATION COMPLIANCE WELL GROUP ATTENDANCE AND PARTICIPATION.
--- NOTE | 2019-07-17 18:02 | NUR ---
PM GROUP/EXERCISE/BEADING/LESIURE PT IN ATTENDANCE AND PARTICIPATED BY DOING BEADING AND SOCIALIZING WITH PEERS. PT EXPRESSES NO PARANOIA BUT DID STATE "I JUST KILLED THAT BUMBLE BEE [id number] THERE" AND POINTED TO THE GROUND WHERE THERE WAS NO BEE. PT WILL CONTINUE TO ATTEND AND PARTICIPATE IN FUTRUE GROUP SESSIONS TO BEST OF PT ABILITY.
[2019-07-17 20:17] VITALS: BP 126/72
--- NOTE | 2019-07-17 20:54 | NUR ---
EVENING/STORY PT IN ATTENDNACE AND FOCUSING ON NEWS PAPER. PT WOULD LISTEN TO STORY SOME TIMES, BUT EVENTUALLY GOT A PHONE CALL AND FOCUSED ON PHONE CALL. PT PLEASNAT WITH NO PARANOIA OR VISUAL HALLUCINATIONS EXPRESSED AT THIS TIME. PT WILL CONTINUE TO ATTEND AN DPARTICIPATE IN FUTURE GROUP SESSIONS TO BEST OF PT ABILITY.
--- NOTE | 2019-07-18 02:41 | NUR ---
NO ADVERSE BEHAVIORS NOTED. PT ALERT AND ORIENTED X4. PT CALM, COOPERATIVE, AND INTERACTIVE. DURING 1:1 PATIENT PLEASANT UPON APPROACH STATING SHE FEELS GREAT WITH NO COMPLAINTS, ALSO THAT "ALL MY ALLISON CATS ARE DOING WONDERFUL, ALL TAKEN CARE OF". PT DENIES SI/HI, HALLUCINATIONS, AND PAIN. NO PARANOIA/DELUSIONS NOTED. PT AMBULATORY WITH STEADY GAIT, ABLE TO MAKE NEEDS KNOWN, CONTINENT OF BOWEL AND BLADDER. PT CURRENTLY LAYING DOWN WITH EYES CLOSED, RESPIRATIONS EASY AND REGULAR, NO SIGNS OR SYMPTOMS OF DISTRESS NOTED. PLAN IS TO CONTINUE MONITOR MOODS AND BEHAVIORS. PROVIDE 1:1 WITH THERAPEUTIC INTERVENTIONS. ENCOURAGE MEDICATION COMPLIANCE AND EDUCATE. MAINTAIN Q 15 MIN CHECKS.
--- NOTE | 2019-07-18 04:03 | NUR ---
24 HOUR CHART CHECK COMPLETED.
--- NOTE | 2019-07-18 05:31 | NUR ---
PT SLEPT 8+ HOUS
--- NOTE | 2019-07-18 07:15 | NUR ---
PHYSICAL THERAPY Patient seen this am for therapy visit and was sitting up at table in activity room upon therapist arrival. Patient identified by name / and reports no new c/o's at this time. OT project assistant was present for observation only.Patient transfers sit to stand SBA and ambulates with use of wh walker, SBA, 75' x 2, demonstrating steady alfredo, no LOB, however chronic Kyphotic posture during all standing activities. Patient returned to chair at table in activity room awaiting breakfast under [facility] staff Supervision. Will continue per POC as tolerated, total treatment time 16 minutes. Jose Jackson, AREA CAPTAIN
--- NOTE | 2019-07-18 07:30 | NUR ---
OT NOTE Pt was seen this A.M. 1:1 for 15 minute OT session with PROJECT ADMINISTRATIVE ASSISTANT and nursing staff present for observation only. Upon arrival pt was sitting upright in the dining croft. Pt identified by name and and had no complaints at this time. Sit to stand completed from chair level with SBA and use of w/w. Functional mobility was then completed to the bathroom with SBA and use of w/w. There she transferred on/off standard commode with SBA and use of grab bar for UE support. Clothing management completd with CGA for safety and toilet hygiene completed with distant supervision while seated. Pt then stood sink side while washing her hands with CGA for safety. Throughout mobility and navigation in the bathroom pt required verbal prompts for safety with turning due to poor safety with the walker and being impulsive, pt continued to present with fair carry over. Functional mobility was then completed back to the dining croft with SBA and use of w/w. There she was left sitting upright under [facility] staff supervision. COntinue with rec D/ Cplan to SNF. HECTOR Dominguez/Daria
--- NOTE | 2019-07-18 08:00 | NUR ---
Treatment Plan meeting was held with CHET Mar, RN, AT, CORRUGATOR-S and Unpaid Intern. Plan for discharge Wednesday. Pt. will return home at discharge.
--- NOTE | 2019-07-18 08:00 | NUR ---
Patient resting quietly with no c/o discomfort. Respirations easy and regular. Vital signs stable. No overt distress. KEN STRONG
[2019-07-18 08:05] VITALS: BP 131/68
--- NOTE | 2019-07-18 08:10 | NUR ---
[facility] AT [facility]. UPDATE GIVEN.
--- NOTE | 2019-07-18 09:00 | NUR ---
STEPHANIE NITROGLYCERIN NEUTRALIZER ON UNIT TO SEE PT AT THIS TIME. UPDATE GIVEN.
--- NOTE | 2019-07-18 11:47 | NUR ---
AM GROUP/EXERCISE AND PRAVEEN PT ATTENDED MORNING GROUP AND PARTICIPATED IN ALL ACTIVITIES. PT EXPRESSED NO HALLUCINATIONS WHILE IN GROUP. PT IS PLEASANTLY CONFUSED.
--- NOTE | 2019-07-18 12:34 | NUR ---
NO ADVERSE MOODS OR BEHAVIORS THIS SHIFT. PT IS ALERT AND ORIENTED TO PERSON, PLACE, APPROXIMATE TIME AND SITUATION. PLEASANTLY CONFUSED AT TIMES WITH MEMORY GAPS NOTED. RESPS EASY AND EVEN ON ROOM AIR. MOOD IS STABLE, AFFECT APPROPRIATE. SPEECH IS WNL AND COHERENT, ABLE TO MAKE NEEDS KNOWN WITHOUT DIFFICULTY. PT DENIES SI/HI, INTENT OR PLAN. PT DENIES HALLUCINATIONS, NO RESPONSE TO INTERNAL STIMULI NOTED. NO PARANOIA OR DELUSIONS NOTED. PT IS MEDICATION COMPLIANT WITHOUT DIFFICULTY. INTERACTS WELL WITH STAFF AND PEERS. NO DISTRESS NOTED. PLAN TO CONTINUE CURRENT TREATMENT, CONTINUE TO MONITOR MOOD AND BEHAVIORS, PROVIDE APPROPRIATE REORIENTATION, REDIRECTION AND 1:1 NEEDED. CONTINUE TO ENCOURAGE MEDICATION COMPLIANCE WELL GROUP ATTENDANCE AND PARTICIPATION.
--- NOTE | 2019-07-18 15:36 | NUR ---
PM GROUP PT DID NOT ATTEND AFTERNOON GROUP THERAPY. PT WAS IN BED RESTING.
--- NOTE | 2019-07-18 18:58 | NUR ---
SHIFT CHART CHECK COMPLETED.
[2019-07-18 19:38] VITALS: BP 132/64
--- NOTE | 2019-07-19 00:13 | NUR ---
PLEASANT COOPERATIVE MEDICATION COMPLIANT. NO MOODS OR BEHAVIORS NOTED, NO DELUSIONS, SI/HI OR INTERNAL STIMULI PRESENT. CONTINUE TO EDUCATE MEDICATION TIME AND PURPOSE UNTIL DISCHARGE
--- NOTE | 2019-07-19 00:53 | NUR ---
24 HR chart check completed.
--- NOTE | 2019-07-19 06:05 | NUR ---
Patient slept approx. 6.5 hours throughout shift. Q 15 minute safety checks continued and maintained.
--- NOTE | 2019-07-19 07:05 | NUR ---
PHYSICAL THERAPY Patient seen this am for therapy visit and was standing in her bathroom following OT assistant production editor visit. Patient identified by name / and was very pleasant as OT assistant production editor was present for observation only during CELL MANAGER session. Patient reported no new c/o's and ambulated with use of wh walker, > 125'x 1, SBA, demonstrating slow, steady alfredo, however still increased chronic Kyphotic posture. Patient also demonstrated mild fatigue, but no LOB as she returned to chair at table in activity room awaiting breakfast under [facility] staff Supervision. Will continue per POC as tolerated, total treatment time 14 minutes. Jose Jackson, CELL MANAGER
--- NOTE | 2019-07-19 07:20 | NUR ---
OT NOTE Pt was seen this A.M. 1:1 for 20 minute OT session with MINES INSPECTOR and nursing staff present for observation only. Upon arrival pt was supine in bed. Pt identified by name and and had no complaints at this time. Pt transferred supine to sit EOB with SBA and use of bed rail for UE support. While sitting EOB pt donned B socks and pants with SBA. Sit to stand completed from bed level with Ewa due to low surface. FUnctional mobility was then completed to the bathroom with SBA and use of w/w for UE support. There she transferred on/off standard commode with SBA and use of grab bar for UE support. Clothing management completed with CGA for safety and toilet hygiene completed with supervision while seated. Pt then stood sink side while washing her hands with CGA for safety. Functional mobility was then completed back to the dining croft where she was left sitting upright under [facility] staff supervision. Continue with rec D/C plan to SNF. CONNOR Dominguez
[2019-07-19 08:02] VITALS: BP 131/61
--- NOTE | 2019-07-19 10:11 | NUR ---
LIZZ FREEDMAN CNP ON UNIT TO ASSESS PATIENT.
--- NOTE | 2019-07-19 11:44 | NUR ---
AM GROUP PT DID NOT ATTEND MORNING GROUP THERAPY. PT WAS IN BED RESTING.
--- NOTE | 2019-07-19 11:56 | NUR ---
Phoned pt's granddaughter Talia Rodriguez and provided update. Discussed pt's med compliance upon pt discharge. Talia stated that she and pt's son Ruslan plan on going to pt's home every day. Also informed Talia that VNA will be ordered. Informed Talia that pt is to discharge Wednesday. Talia will transport pt during early evening hours on Wednesday.
--- NOTE | 2019-07-19 15:47 | NUR ---
PM GROUP PT WAS PRESENT FOR AFTERNOON GROUP THERAPY SLEEPING AT THE TABLE SITTING UPRIGHT. PT DID NOT WAKE DURING GROUP
--- NOTE | 2019-07-19 15:54 | NUR ---
Shift chart check completed.
[2019-07-19 19:52] VITALS: BP 130/68
--- NOTE | 2019-07-20 00:14 | NUR ---
24 HR chart check completed.
--- NOTE | 2019-07-20 00:54 | NUR ---
PT WAS RESTING IN BED AT THE BEGINNING OF THE SHIFT. STATED, "I'M FINE. DOING GOOD". DENIES ANY PHYSICAL DISCOMFORT. ALERT TO PERSON, PLACE & TIME WITH MEMORY GAPS. PLEASANT WHILE TALKING TO STAFF. REFUSED SNACK. COMPLIANT TAKING MEDICATIONS CRUSHED & MIXED IN APPLESAUCE. MOVES ABOUT UNIT VIA WHEELED WALKER. CONTINENT WITH TOILETING.
--- NOTE | 2019-07-20 05:07 | NUR ---
PT HAS SLEPT INTERMITTENTLY SINCE THE ONSET OF THE SHIFT FOR A TOTAL OF APPROX 7 1/2 HOURS. WAS AWAKE FROM [id number] PASSING FLATUS & BELCHING. STATED SHE THINKS SOMETHING SHE ATE EARLIER IN THE DAY DIDN'T AGREE WITH HER. REFUSED OFFER OF MAALOX.
--- NOTE | 2019-07-20 07:05 | NUR ---
PHYSICAL THERAPY Patient seen this am for therapy visit and was sitting up on EOB upon therapist arrival. Patient identified by name / and was joined by OT optometry assistant who was present for observation only this session. Patient transfers sit to stand SBA and ambulated 20'x 1 to bathroom, SBA, with use of wh walker. Patient also ambulated additional 75'x 1, SBA, wh walker, demonstrating chronic Kyphotic posture, increased gait velocity and bouts of POOR walker safety secondary to stepping away from walker at times as she nears an object, such as sitting down or in the bathroom near sink. Patient able to correct behaviour following v/c and returned to chair at table in activity room awaiting breakfast, under [facility] staff Supervision. Will continue per POC as tolerated, total treatment time 14 minutes. Jose Jackson, ROLLOFF TRUCK DRIVER
--- NOTE | 2019-07-20 07:15 | NUR ---
OT NOTE Pt was seen this A.M. 1:1 for 15 minute OT session. Upon arrival pt was supine in bed. Pt identified by name and and had no complaints at this time. Pt transferred supine to sit EOB with SBA. While sitting EOB pt donned pants and socks with CGA for safety. Functional mobility was then completed into the bathroom with SBA and use of w/w. Pt transferred on/off standard commode with SBA. Clothing management and toilet hygiene completed with CGA for safety. Pt then stood sink side while washing her hands with SBA. Throughout all task pt required verbal prompts for walker safety due to walking away without the walker. Functional mobility was then completed back to the dining croft where she was left sitting upright under [facility] staff supervision. Continue with rec D/C plan to SNF. HECTOR Dominguez/Daria
[2019-07-20 08:00] VITALS: BP 129/70
--- NOTE | 2019-07-20 08:00 | NUR ---
Treatment Plan meeting was held with Dr. Malloy, RN, AT, ASSOCIATE PROFESSOR OF THEATRE-S and Chart Computer in attendance, Plan for discharge Wednesday. Pt. to return home.
--- NOTE | 2019-07-20 11:57 | NUR ---
DR HERRING ON UNIT TO SEE PATIENT
--- NOTE | 2019-07-20 15:04 | NUR ---
P-CONFUSION, ISOLATIVE I-REDIRECTION WITH 1:1 THERAPEUTIC INTERVENTIONS AND PRESENT REALTIY. EDUCATE AND ENCOURAGE MEDICATION COMPLIANCE R-PATIENT MEDICATION COMPLIANT WITH ENCOURAGEMENT. PATIENT CONTINUES OF ZITHROMAX WITH NO ADVERSE REACTION. PATIENT ISOLATIVE AND WITHDRAWN WITH LIMITED INTERACTION WITH PEERS. PATIENT WITH NO HALLUCINATIONS OR DELUSIONS AT THIS TIME. PATIENT WITH NO SUICIDAL SUICIDAL OR MOMICIDAL IDEATIONS. PATIENT AMBULATING ON UNIT WITH WHEELED WALKER AND WITH SLOW, STEADY GAIT. P-CONTINUE TO ENCOURAGE MEDICATION COMPLAINCE, CONTINUE TO PRESENT REALITY, ENCOURAGE GROUP THERAPY WHILE AWAKE
--- NOTE | 2019-07-20 15:48 | NUR ---
PM GROUP PT WAS PRESENT FOR AFTERNOON GROUP THERAPY SITTING AT A TABLE SLEEPING. PT WOKE A FEW TIMES, WAS ASKED IF SHE WAS OKAY, RESPONDED AND WENT RIGHT BACK TO SLEEP.
[2019-07-20 19:48] VITALS: BP 128/72
--- NOTE | 2019-07-20 19:58 | NUR ---
24 HR chart check completed.
--- NOTE | 2019-07-20 21:52 | NUR ---
P-MILDLY DEPRESSED. I-PROVIDE EMOTIONAL SUPPORT, ASSESS ORIENTATION. ADMIISTER MEDS, MONITOR SLEEP R-PT HAS BEEN SITTING IN THE DINING ROOM KEEPING QUIETLY TO HERSELF. APPEARS MILDY DEPRESSED BUT IS MUCH BRIGHTER & PLEASANT WHEN SPEAKING TO STAFF. STATED, "I'M DOING GOOD." DENIES ANY PHYSICAL DISCOMFORT. ALERT TO PERSON, PLACE & TIME WITH MEMORY GAPS. ATE SNACK. COMPLIANT TAKING MEDICATIONS CRUSHED & MIXED IN APPLESAUCE. MOVES ABOUT UNIT VIA WHEELED WALKER. CONTINENT WITH TOILETING. P-CONTINUE TO MONITOR & PROVIDE PHYSICAL ASSISTANCE & EMOTIONAL SUPPORT
--- NOTE | 2019-07-21 05:50 | NUR ---
PT HAS SLEPT PAST 2144
--- NOTE | 2019-07-21 07:36 | NUR ---
OT NOTE Attempted to see pt this A.M. for OT session and upon arrival pt was eating her breakfast. Will check back at a later time/date and continue with POC as able. HECTOR Dominguez/Daria
[2019-07-21 08:00] VITALS: BP 108/76
--- NOTE | 2019-07-21 08:00 | NUR ---
Treatment Plan meeting was held with CHET Mar RN, HIDE COOKING OPERATOR-S and Product Safety Specialist. Plan for discharge today with return home. Family will provide Care and Monitor Medications. Follow up appointments have been scheduled.
--- NOTE | 2019-07-21 08:49 | NUR ---
SPOKE WITH DR RODRIGUES RE: PT DISCHARGE FOR TODAY AND MEDICAL MEDS NEEDING COMPLETED.
[2019-07-21] MEDS ORDERED: ROZEREM8 MG PO (09:00)
[2019-07-21] MEDS ORDERED: VITAMIN D3125 MC1 PO (09:00)
[2019-07-21] MEDS ORDERED: EXELON13.3 MG/21 T (09:00)
[2019-07-21] MEDS ORDERED: MEMANTINE HCL10 MG PO (09:00)
[2019-07-21] MEDS ORDERED: RISPERIDONE1 MG PO (09:00)
--- NOTE | 2019-07-21 09:30 | NUR ---
DR CONTEH ON UNIT TO SEE PATIENT
--- NOTE | 2019-07-21 12:30 | NUR ---
Patient is discharging to home today. Follow-up was scheduled with Dr Lyons, pt's PCP and with Anselmo Vazquez for mental health follow-up. A referral was also made for VNA. While at [facility], pt's paranoid delusions about a family member resolved. Pt is A&Ox3 with intermittent times of confusion. Pt was pleasant and cooperative with staff and peers. She did participate in programming.
--- NOTE | 2019-07-21 12:40 | NUR ---
P-CONFUSION, ISOLATIVE I-REDIRECTION WITH 1:1 THERAPEUTIC INTERVENTIONS AND PRESENT REALTIY. EDUCATE AND ENCOURAGE MEDICATION COMPLIANCE R-PATIENT MEDICATION COMPLIANT WITH ENCOURAGEMENT. PATIENT CONTINUES OF ZITHROMAX WITH NO ADVERSE REACTION. PATIENT ISOLATIVE AND WITHDRAWN WITH LIMITED INTERACTION WITH PEERS. PATIENT WITH NO HALLUCINATIONS OR DELUSIONS AT THIS TIME. PATIENT WITH NO SUICIDAL OR HOMICIDAL IDEATIONS. PATIENT AMBULATING ON UNIT WITH WHEELED WALKER AND WITH SLOW, STEADY GAIT. P-CONTINUE TO ENCOURAGE MEDICATION COMPLAINCE, CONTINUE TO PRESENT REALITY, ENCOURAGE GROUP THERAPY WHILE AWAKE
--- NOTE | 2019-07-21 12:43 | NUR ---
Orders received from Dr. Malloy for Home Health Care. Pt. lives in [place], [place]. Call placed to [facility] and spoke with Multimedia Designer who advised that Patient had previously been seen by [facility]. Call Placed to [facility] and spoke with Alana in Admissions. Faxed Referral to [facility] [phone].
--- NOTE | 2019-07-21 14:12 | NUR ---
PATIENT DISCHARGED FROM UNIT AND STABLE AT TIME OF DISCHARGE. PATIENT DISCHARGED WITH ALL OF BELONGINGS. PATIENT'S GRANDDAUGHTER PROVIDED TRANSPORTATION IN PRIVATE VEHICLE. PATIENT AND GRANDDAUGHTER UPDATED WITH FOLLOW UP APPOINTMENTS THAT WERE NOT ON DISCHARGE PAPERWORK. THIS NURSE DISCUSSED WITH PATIENT ABOUT RECEIVING HOME HEALTH CARE. PATIENT ESCORTED OFF THE UNIT VIA WHEELCHAIR, GRANDDAUGHTER, AND MENTAL HEALTH WORKER. PATIENT VOICES NO CONCERNS AT TIME OF DISCHARGE
--- NOTE | 2019-07-21 16:32 | NUR ---
OCCUPATIONAL THERAPY CO-SIGN I approve of the Occupational Therapy notes written above. CATARINA ANDRADE OTR/[place]
== END 2019-07-21 14:12 | disposition home health service (06) | DRG 885 ==
LOC: 3N 00:51
PROVIDERS: Counselor Professional; ADMIT Psychiatry & Neurology Psychiatry
DX: F23 Brief psychotic disorder (principal); E44.0 Moderate protein-calorie malnutrition; I50.9 Heart failure, unspecified; F41.9 Anxiety disorder, unspecified; M19.90 Unspecified osteoarthritis, unspecified site; J06.9 Acute upper respiratory infection, unspecified; I11.0 Hypertensive heart disease with heart failure; Z88.1 Allergy status to other antibiotic agents; Z88.8 Allergy status to other drugs, medicaments and biological substances; Z68.20 Body mass index [BMI] 20.0-20.9, adult; Z95.5 Presence of coronary angioplasty implant and graft; Z79.82 Long term (current) use of aspirin; Z79.899 Other long term (current) drug therapy